=== PATIENT | female | born 1990 | race Native Hawaiian/Other Pacific Islander ===

== ENCOUNTER 2019-08-28 15:45 | Emergency (ER) | payer BC ==
[~2019-08-28] VITALS: Ht 154.9 cm; Wt 59.0 kg
[2019-08-28 16:00] VITALS: TEMP 99.1
[2019-08-28 17:37] LABS: PLATELET COUNT 213 K/uL (152-353)
[2019-08-28 17:41] LABS: POTASSIUM 3.9 mmol/L (3.6-5.2)
[2019-08-28 21:35] VITALS: BP 122/76
== END 2019-08-28 21:50 | disposition short-term general hospital (02) ==
LOC: ED 15:45
PROVIDERS: Family Medicine
DX: K35.80 Unspecified acute appendicitis (principal)
CPT/HCPCS: 80053; 81000; 85027; 96360; 96361; 96365; 96375; 99285; J1885; J2543